=== PATIENT | male | born 1935 | race Caucasian/White ===

== ENCOUNTER 2018-11-07 11:28 | Day surgery (SDC) | payer BC ==
[2018-11-07] MEDS ORDERED: PROPOFOL 10 MG/ML VIAL IV ONE (11:29)
[2018-11-07] MEDS ORDERED: LIDOCAINE 2% MDV (20MG/ML) 20ML VIAL IV ONE (11:29)
[2018-11-07 12:32] LABS: BASO % 0.3 % (0-6); EOS % 1.4 % (0-6); GRAN % 77.5 % (47-80); HEMATOCRIT 36.4 % (42.0-52.0); HEMOGLOBIN 11.9 gm/dl (14.0-18.0); LYMPH % 15.6 % (16-45); MEAN CELL VOLUME 98.6 fl (81-97); MEAN CORPUSCULAR HEMOGLOBIN 32.2 pg (27-33); MEAN CORPUSCULAR HGB CONC 32.7 g/dl (32-36); MEAN PLATELET VOLUME 8.5 fl (7.4-10.4); MONO % 5.2 % (0-9); PLATELET COUNT 355 K/uL (130-400); RED BLOOD COUNT 3.69 M/uL (4.40-5.70); RED CELL DISTRIBUTION WIDTH 15.1 % (11.5-14.5); WHITE BLOOD COUNT W/O DIFF 6.6 K/uL (4.2-12.2)
[2018-11-07 12:50] LABS: ALB/GLOB RATIO 1.9 (1.1-1.8); ALBUMIN 3.9 g/dL (4.0-5.0); ALKALINE PHOSPHATASE 51 U/L (40-129); ALT/SGPT 11 U/L (<41); AST/SGOT 20 U/L (10.0-50.0); BLOOD UREA NITROGEN 17 mg/dL (8-23); CREATININE 1.2 mg/dL (0.7-1.2); EST GLOMERULAR FILTRATION RATE > 60 mL/min; GLUCOSE,RANDOM 99 mg/dL (74-109)
--- NOTE | 2018-11-09 21:32 | Operative Note ---
DATE OF PROCEDURE: 11/07/2018 INDUSTRIAL TECHNOLOGY EDUCATION TEACHER: MONIKA BE M.D. HISTORY: Mr. Ni is 83 years old, who underwent elective cardioversion for persistent atrial fibrillation. He has been on Amiodarone and Apixaban. PROCEDURE: After informed consent, the patient was brought to the PACU. Conscious sedation was performed by Anesthesia. Defibrillator pads were placed in the anterior/posterior position. 200 joules biphasic countershock was provided x1 with successful conversion of atrial fibrillation to sinus rhythm. No complications were noted. FINAL IMPRESSION: 1. SUCCESSFUL CARDIOVERSION OF ATRIAL FIBRILLATION TO SINUS RHYTHM. 2. CONTINUE AMIODARONE 200 MG DAILY. 3. DISCONTINUE ATENOLOL. 4. CONTINUE APIXABAN 5 MG B.I.D. 5. FOLLOW-UP IN TWO WEEKS. JOB NUMBER: [id number] MTDD
== END 2018-11-07 14:00 | disposition home or self-care (01) ==
LOC: SUR 11:28
PROVIDERS: ATTEND Internal Medicine Cardiovascular Disease
DX: I48.1 Persistent atrial fibrillation (principal); I50.9 Heart failure, unspecified; I10 Essential (primary) hypertension; E78.00 Pure hypercholesterolemia, unspecified; M19.90 Unspecified osteoarthritis, unspecified site; G89.29 Other chronic pain
CPT/HCPCS: 80053; 85025; 93005

== ENCOUNTER 2019-06-20 12:39 | Day surgery (SDC) | payer BC ==
[2019-06-20] MEDS ORDERED: LIDOCAINE 2% MDV (20MG/ML) 20ML VIAL IV ONE (12:40)
[2019-06-20] MEDS ORDERED: *PACU ONLY* KETAMINE HCL 10 MG/ML (20ML) VIAL IV ONE (12:40)
[2019-06-20] MEDS ORDERED: PROPOFOL 10 MG/ML VIAL IV ONE (12:40)
--- NOTE | 2019-06-21 12:42 | Operative Note ---
OPERATION: ESOPHAGOGASTRODUODENOSCOPY with biopsy. PREOPERATIVE DIAGNOSIS: Dysphagia and abnormal esophagram. 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 PROCEDURE: After informed consent was obtained from the patient and his family, he was placed in the left lateral decubitus position in the endoscopy suite, sedated and monitored by the department of anesthesia. A well-lubricated [id number] gastroscope was placed in the posterior oropharynx and advanced into the proximal esophagus and ultimately into the mid esophagus. There was a large amount of retained debris which was aspirated via the endoscope. The view of the esophageal lumen was obscured with retained debris. There appeared to be a friable lesion in the mid and distal portion of the esophagus. Several biopsies were obtained. There was a small amount of bleeding noted. The fluid and blood that was observed was evacuated. I was unable to advance the endoscope into the stomach due to concern of the retained food as well as limited visibility. The endoscope was removed from the patient. RECOMMENDATIONS: We will await the results of biopsies. I would suggest that a CT of the chest be performed. I would suggest also an oncology evaluation should the biopsies demonstrate evidence of malignancy. As always, thank you for allowing me to participate in the healthcare of your patients. JUAN PABLO
== END 2019-06-20 13:50 | disposition home or self-care (01) ==
LOC: HOP 12:39
PROVIDERS: ATTEND Internal Medicine Gastroenterology
DX: R13.10 Dysphagia, unspecified (principal); R93.3 Abnormal findings on diagnostic imaging of other parts of digestive tract; D00.1 Carcinoma in situ of esophagus; Z53.8 Procedure and treatment not carried out for other reasons; I48.91 Unspecified atrial fibrillation; I10 Essential (primary) hypertension; E78.00 Pure hypercholesterolemia, unspecified